=== PATIENT | female | born 1950 | race Caucasian/White ===

== ENCOUNTER 2023-04-03 17:41 | Inpatient (IN) | payer MEDICARE ==
[~2023-04-03] VITALS: Ht 152.4 cm; Wt 131.5 kg
[2023-04-03] MEDS ORDERED: FAMOTIDINE 20 MG/2 ML VIAL IV STA (18:18)
[2023-04-03] MEDS ORDERED: ONDANSETRON HCL INJ 2MG/ML 2ML 2 MG/ML VIAL IV STA (18:18)
[2023-04-03] MEDS ORDERED: LACTATED RINGER'S 1,000 ML INJ SCH (18:30)
[2023-04-03] MEDS ORDERED: ONDANSETRON HCL INJ 2MG/ML 2ML 2 MG/ML VIAL ONE (18:55)
[2023-04-03] MEDS ORDERED: LACTATED RINGER'S 1,000 ML ONE ×2 (18:55→19:03)
[2023-04-03] MEDS ORDERED: FAMOTIDINE 20 MG/2 ML VIAL IV ONE (18:55)
[2023-04-03] MEDS ORDERED: ULTRAM 50MG50 MG PO (19:39)
[2023-04-03] MEDS ORDERED: FUROSEMIDE20 MG (19:39)
[2023-04-03] MEDS ORDERED: ZESTRIL10 MG PO (19:39)
[2023-04-03] MEDS ORDERED: BYDUREON B2 MG/0.85 (19:39)
[2023-04-03] MEDS ORDERED: NOVOLOG100 UNIT/1 SC (19:39)
[2023-04-03] MEDS ORDERED: ZIAC 5-6.25 MG1 EACH PO (19:39)
[2023-04-03] MEDS ORDERED: LANSOPRAZOLE30 MG (19:39)
[2023-04-03] MEDS ORDERED: LANTUS 3ML100 UNITS/ SQ (19:39)
[2023-04-03] MEDS ORDERED: CRESTOR10 MG PO (19:39)
[2023-04-03] MEDS ORDERED: LEVOFLOXACIN 500MG/D5W 100ML IV SCH (21:15)
[2023-04-03] MEDS ORDERED: SODIUM CHLORIDE 0.9% 1000ML 1,000 ML IV SCH (21:15)
[2023-04-03] MEDS ORDERED: LEVOFLOXACIN 500MG/D5W 100ML IV ONE (21:30)
[2023-04-03] MEDS ORDERED: LEVOFLOXACIN 500MG/D5W 100ML 100 ML IV ONE (21:48)
[2023-04-03] MEDS ORDERED: SODIUM CHLORIDE 0.9% 1000ML 1,000 ML ONE (21:49)
[2023-04-03] MEDS ORDERED: BENZOCAINE 20% SPR 60 ML CAN ONE (22:21)
[2023-04-03] MEDS ORDERED: BENZOCAINE 20% SPR 60 ML CAN MT ONE (22:45)
[2023-04-04] VITALS (10 sets, daily range): BP systolic 121–158; BP diastolic 53–68; PULSE 70–94; RESP 18–20; TEMP 97.8–98.4; O2SAT 94–100
[2023-04-04] MEDS ORDERED: MELATONIN 5 MG TABLET PO PRN (00:45)
[2023-04-04] MEDS ORDERED: DEXTROSE 50% SYRINGE 50 ML IV PRN ×2 (00:45)
[2023-04-04] MEDS ORDERED: BENZONATATE 100 MG CAP PO PRN (00:45)
[2023-04-04] MEDS ORDERED: LIDOCAINE 4% PATCH TP PRN (00:45)
[2023-04-04] MEDS ORDERED: DIPHENHYDRAMINE HCL 25 MG CAP PO PRN (00:45)
[2023-04-04] MEDS ORDERED: DOCUSATE SODIUM 100 MG CAP PO PRN (00:45)
[2023-04-04] MEDS ORDERED: POTASSIUM CHLORIDE 20 MEQ TAB CR PO PRN (00:45)
[2023-04-04] MEDS ORDERED: ALBUTEROL/IPRATROPIUM 3 ML NEB NEB PRN (00:45)
[2023-04-04] MEDS ORDERED: Morphine 2mg Syringe 2 MG/ML SYR IV PRN (00:45)
[2023-04-04] MEDS ORDERED: ACETAMINOPHEN 325 MG TAB PO PRN (00:45)
[2023-04-04] MEDS ORDERED: SIMETHICONE 80 MG CHEW PO PRN (00:45)
[2023-04-04] MEDS ORDERED: HYDRALAZINE HCL 20 MG/ML VIAL IV PRN (00:45)
[2023-04-04] MEDS ORDERED: ALBUTEROL SULF 0.083% NEB SOLN 3 ML NEB NEB PRN (01:00)
[2023-04-04] MEDS ORDERED: IPRATROPIUM BROMIDE 0.02% 2.5 ML NEB NEB PRN (01:00)
[2023-04-04] MEDS: ONDANSETRON HCL INJ 2MG/ML 2ML 2 MG/ML VIAL IV PRN ×2 (01:04→14:50)
[2023-04-04] MEDS: DEXTROSE 5%/0.9% SOD CHL 1,000 ML IV SCH ×3 (01:12→14:52)
[2023-04-04 06:45] LABS: BASOPHILS % 0.4 % (0.0-1.0); EOSINOPHILS # (AUTO) 0.1 (0.0-0.4); EOSINOPHILS % 0.6 % (0.0-6.0); HEMATOCRIT 32.6 % (34.2-44.1); HEMOGLOBIN 9.6 g/dL (12.0-16.0); LYMPHOCYTES # (AUTO) 1.7 (1.0-3.2); LYMPHOCYTES % 17.8 % (18.0-39.1); MEAN CORPUSCULAR HGB CONC 29.4 g/dL (31-35); MEAN CORPUSCULAR VOLUME 91.6 fL (81-99); MONOCYTES # (AUTO) 0.5 (0.2-0.8); MONOCYTES % 5.4 % (4.4-11.3); NEUTROPHILS # (AUTO) 7.3 (2.1-6.9); NEUTROPHILS % 75.3 % (38.7-80.0); PLATELET COUNT 248 x10e3/uL (140-360); RED BLOOD COUNT 3.56 x10e6/uL (3.6-5.1); RED CELL DISTRIBUTION WIDTH 15.4 % (11.7-14.4)
[2023-04-04 07:24] LABS: ANION GAP 12.8 mmol/L (8-16); CALCIUM 8.9 mg/dL (8.4-10.2); CREATININE, SERUM 1.3 mg/dL (0.57-1.11); POTASSIUM 3.8 mmol/L (3.5-5.1)
[2023-04-04] MEDS: INSULIN LISPRO 100 UNIT/1 ML 3ML VIAL SQ SCH ×4 (07:30→21:00)
[2023-04-04] MEDS ORDERED: SALINE 0.65% NAS SOLN 1 SPRAY BTL PRN (14:45)
[2023-04-04] MEDS ORDERED: LEVOFLOXACIN 500MG/D5W 100ML 100 ML IV SCH (21:30)
[2023-04-05] VITALS (11 sets, daily range): BP systolic 132–155; BP diastolic 51–64; PULSE 68–82; RESP 15–22; TEMP 97.3–98.5; O2SAT 95–100
[2023-04-05] MEDS ORDERED: DIPHENHYDRAMINE HCL INJ 50 MG/ML VIAL IV PRN (02:15)
[2023-04-05] MEDS: INSULIN LISPRO 100 UNIT/1 ML 3ML VIAL SQ SCH ×4 (07:30→20:31)
[2023-04-05] MEDS: ENOXAPARIN SOD INJ 40 MG/0.4 ML SYR SC SCH (17:00)
[2023-04-06] VITALS (10 sets, daily range): BP systolic 138–165; BP diastolic 48–62; PULSE 67–90; RESP 18–20; TEMP 97.9–98.3; O2SAT 97–100
[2023-04-06] MEDS: INSULIN LISPRO 100 UNIT/1 ML 3ML VIAL SQ SCH ×3 (07:30→16:30)
[2023-04-06 10:35] LABS: ANION GAP 11.5 mmol/L (8-16); CREATININE, SERUM 1.07 mg/dL (0.57-1.11); POTASSIUM 3.5 mmol/L (3.5-5.1)
[2023-04-06 11:17] LABS: HEMATOCRIT 32.3 % (34.2-44.1); HEMOGLOBIN 9.6 g/dL (12.0-16.0)
[2023-04-06] MEDS: ENOXAPARIN SOD INJ 40 MG/0.4 ML SYR SC SCH (17:00)
== END 2023-04-06 19:15 | disposition home or self-care (01) | DRG 394 ==
LOC: EDBD 17:41 → FSED 18:13 → ERHOLD 21:12 → MED/SURG3 23:53
PROVIDERS: ADMIT Internal Medicine; ATTEND Internal Medicine
DX: K43.6 Other and unspecified ventral hernia with obstruction, without gangrene (principal); Z68.43 Body mass index [BMI] 50.0-59.9, adult; E66.01 Morbid (severe) obesity due to excess calories; E11.9 Type 2 diabetes mellitus without complications; Z79.4 Long term (current) use of insulin; I10 Essential (primary) hypertension; E78.5 Hyperlipidemia, unspecified; Z71.3 Dietary counseling and surveillance; Z20.822 Contact with and (suspected) exposure to COVID-19
CPT/HCPCS: 0223U; 36415; 74018; 74019; 74176; 80048; 81003; 82948; 83605; 85014; 85018; 85025; 93005; 94660; 94799; 96361; 99284; J1200; J1650; J1956; J2405; J7030; J7042